=== PATIENT | female | born 2000 | race Caucasian/White ===

== ENCOUNTER → 2023-08-20 13:20 | Outpatient (BNVA) | payer BC, MEDICAID, SELFPAY | PROVIDERS: Visit Provider Nurse Practitioner Family | DX: N39.0 Urinary tract infection, site not specified (principal); A49.9 Bacterial infection, unspecified; R11.0 Nausea; R30.0 Dysuria | CPT/HCPCS: 81000; 81003; 87077; 87086; 87184 ==